=== PATIENT | male | born 1960 | race Two or more races ===

== ENCOUNTER → 2020-08-07 | Outpatient (CLI) | payer OTHER ==
[~2020-08-07] MED LIST: FORTAMET1000 MG
== END | disposition home or self-care (01) ==
LOC: OFIC 805 13:00
PROVIDERS: ATTEND Otolaryngology
DX: H61.033 Chondritis of external ear, bilateral (principal); H61.21 Impacted cerumen, right ear

== ENCOUNTER → 2020-08-16 | Outpatient (CLI) | payer OTHER | END | disposition home or self-care (01) | LOC: OFIC 805 08:30 | PROVIDERS: ATTEND Otolaryngology Otology & Neurotology | DX: H61.031 Chondritis of right external ear (principal); H61.321 Acquired stenosis of right external ear canal secondary to inflammation and infection ==

== ENCOUNTER → 2020-08-21 | Outpatient (CLI) | payer OTHER | END | disposition home or self-care (01) | LOC: OFIC 805 09:20 | PROVIDERS: ATTEND Otolaryngology | DX: H61.031 Chondritis of right external ear (principal) ==

== ENCOUNTER 2020-09-01 15:09 | Emergency (ER) | payer OTHER ==
[~2020-09-01] VITALS: Ht 177.8 cm; Wt 99.8 kg
[2020-09-01] MEDS ORDERED: SENSIPAR30 MG PO (15:49)
[2020-09-01] MEDS ORDERED: PLAVIX75 MG PO (15:50)
[2020-09-01] MEDS ORDERED: ISOSORBIDE MONO60 MG PO (15:50)
[2020-09-01] MEDS ORDERED: PEPCID20 MG PO (15:50)
[2020-09-01] MEDS ORDERED: GLIPIZIDE XL5 MG PO (15:51)
[2020-09-01] MEDS ORDERED: LASIX40 MG PO (15:51)
[2020-09-01] MEDS ORDERED: LIPITOR20 MG PO (15:51)
[2020-09-01] MEDS ORDERED: TOPROL XL50 M1 PO (15:51)
[2020-09-01] MEDS ORDERED: HUMULIN N100 UNIT/2 SUBCUTANEO (15:54)
[2020-09-01] MEDS ORDERED: HUMALOG100 UNIT/2 SUBCUTANEO (15:54)
[2020-09-01] MEDS ORDERED: LANTUS SOL100 UNIT/1 SUBCUTANEO (15:55)
[2020-09-01] MEDS ORDERED: SEPTRA PO (15:56)
[2020-09-01] MEDS ORDERED: ZITHROMAX500 MG PO (22:41)
== END 2020-09-01 22:50 | disposition home or self-care (01) ==
LOC: ER 15:09
DX: J16.8 Pneumonia due to other specified infectious organisms (principal); R09.02 Hypoxemia; H66.91 Otitis media, unspecified, right ear; Z20.828 Contact with and (suspected) exposure to other viral communicable diseases

== ENCOUNTER 2020-09-04 13:42 | Outpatient (CLI) | payer OTHER ==
[~2020-09-04 13:42] MED LIST changes: +GLIPIZIDE XL5 MG PO; +HUMALOG100 UNIT/2 SUBCUTANEO; +HUMULIN N100 UNIT/2 SUBCUTANEO; +ISOSORBIDE MONO60 MG PO; +LANTUS SOL100 UNIT/1 SUBCUTANEO; +LASIX40 MG PO; +LIPITOR20 MG PO; +PEPCID20 MG PO; +PLAVIX75 MG PO; +SENSIPAR30 MG PO; +SEPTRA PO; +TOPROL XL50 M1 PO; +ZITHROMAX500 MG PO
== END 2020-09-04 14:00 | disposition home or self-care (01) ==
LOC: OFIC 805 13:42
PROVIDERS: ATTEND Otolaryngology Otology & Neurotology
DX: H66.41 Suppurative otitis media, unspecified, right ear (principal); H61.321 Acquired stenosis of right external ear canal secondary to inflammation and infection; H61.031 Chondritis of right external ear; H92.01 Otalgia, right ear

== ENCOUNTER 2020-09-04 14:38 | Outpatient (CLI) | payer OTHER | END 2020-09-04 18:00 | disposition home or self-care (01) | LOC: LAB 14:38 | PROVIDERS: ATTEND Otolaryngology Otology & Neurotology | DX: H60.01 Abscess of right external ear (principal) ==

== ENCOUNTER 2020-09-06 08:13 | Outpatient (CLI) | payer OTHER | END 2020-09-06 15:26 | disposition home or self-care (01) | LOC: OFIC 805 08:13 | PROVIDERS: ATTEND Otolaryngology Otology & Neurotology | DX: H61.031 Chondritis of right external ear (principal); H92.01 Otalgia, right ear; H66.41 Suppurative otitis media, unspecified, right ear ==

== ENCOUNTER → 2020-10-06 | Day surgery (SDC) | payer OTHER | END | disposition home or self-care (01) | LOC: ADM 09-22 08:00 → OFIC 805 10:10 | PROVIDERS: ATTEND Otolaryngology Otology & Neurotology | DX: H66.41 Suppurative otitis media, unspecified, right ear (principal); H92.01 Otalgia, right ear; H66.91 Otitis media, unspecified, right ear; H61.21 Impacted cerumen, right ear; H61.391 Other acquired stenosis of right external ear canal; H61.031 Chondritis of right external ear ==

== ENCOUNTER 2020-11-03 11:27 | Outpatient (CLI) | payer OTHER ==
[2020-11-17] MEDS ORDERED: CIPRODEX OTIC7.5 ML OT (13:28)
== END 2020-11-03 13:56 | disposition home or self-care (01) ==
LOC: OFIC 805 11:27
PROVIDERS: ATTEND Otolaryngology Otology & Neurotology
DX: H92.01 Otalgia, right ear (principal); H61.321 Acquired stenosis of right external ear canal secondary to inflammation and infection; H61.031 Chondritis of right external ear

== ENCOUNTER → 2020-11-17 | Day surgery (SDC) | payer OTHER ==
[~2020-11-17] MED LIST changes: +CIPRODEX OTIC7.5 ML OT
== END | disposition home or self-care (01) ==
LOC: ADM 11-10 09:30 → CIR.AMB 08:16
PROVIDERS: ATTEND Otolaryngology Otology & Neurotology
DX: H61.321 Acquired stenosis of right external ear canal secondary to inflammation and infection (principal); H61.111 Acquired deformity of pinna, right ear; Z20.822 Contact with and (suspected) exposure to COVID-19

== ENCOUNTER 2020-11-22 12:34 | Outpatient (CLI) | payer OTHER | END 2020-11-22 16:45 | disposition home or self-care (01) | LOC: OFIC 805 12:34 | PROVIDERS: ATTEND Otolaryngology Otology & Neurotology | DX: H61.111 Acquired deformity of pinna, right ear (principal); H61.321 Acquired stenosis of right external ear canal secondary to inflammation and infection; H61.031 Chondritis of right external ear ==